=== PATIENT | male | born 1955 | race African-American/Black ===

== ENCOUNTER 2017-10-25 02:23 | Observation (INO) | payer MEDICARE ==
[2017-10-25] MEDS ORDERED: Albuterol Sulfate 2.5 mg/3 ml Neb ONE (02:29)
[2017-10-25 03:03] LABS: pH, Arterial 7.32 (7.35-7.45)
[2017-10-25 03:04] LABS: Actual Bicarbonate (HCO3a) 27.1 mEq/L (22-28); Base Excess (BEa) 0.4 mEq/L (-2.0 to +3.0); CO2 Tension 53.7 mmHg (35.0-45.0); O2 Tension (PaO2) 27.1 mmHg (> 80.0)
[2017-10-25 03:05] LABS: Hemoglobin (Hb) 11.1 g/dL (14.0-18.0)
[2017-10-25 03:06] LABS: ALV-art Gradient 259.775 (0-20); Analyzer IN Cardio ER; Calcium, Ionized 1.1 mmol/L (1.12-1.30); Puncture Site RRA
[2017-10-25 03:30] LABS: #Basophils 0.1 thou/uL (0.0-0.2); #Eosinphils 0.5 thou/uL (0.0-0.7); #Lymphocytes 2.2 thou/uL (1.20-3.40); #Monocytes 0.9 thou/uL (0.11-0.59); #Neutrophils 9.3 thou/uL (1.40-6.50); %Basophils 0.7 % (0.0-1.0); %Eosinophils 3.5 % (0.0-10.0); %Monocytes 6.8 % (0.0-10.0); Hemoglobin 10.9 g/dL (14.0-18.0); Mean Corpuscular HGB CONC 33.8 g/dL (32.0-36.0); Mean Corpuscular Hemoglobin 30.1 pg (27.0-31.0); Mean Platelet Volume 8.4 fL (7.4-10.4); Platelet Count 272 thou/uL (130-400); RBC Distribution Width 16.3 % (11.5-14.5); Red Blood Cell (RBC) Count 3.62 mill/uL (4.70-6.10)
[2017-10-25 03:48] LABS: ALT (SGPT) 14 U/L (8-55); AST (SGOT) 14 U/L (5-34); Alkaline Phosphatase 107 U/L (40-150); Anion Gap 24 mmol/L (10-20); BUN (Urea Nitrogen) 68 mg/dL (8.4-25.7); Bilirubin, Total 0.4 mg/dL (0.2-1.2); Calc. Creatinine Clearance 0 mL/min (70-130); Calcium 9.1 mg/dL (7.8-10.44); Carbon Dioxide 22 mmol/L (23-31); Chloride 94 mmol/L (98-107); Estimated GFR-MDRD 7; Globulin 4.5 g/dL (2.4-3.5); Glucose 105 mg/dL (80-115); Potassium 5.5 mmol/L (3.5-5.1); Protein, Total 8.5 g/dL (5.8-8.1); Sodium 134 mmol/L (136-145)
[2017-10-25 03:53] LABS: CKMB 2.5 ng/mL (0-6.6); Troponin I 0.021 ng/mL (< 0.028)
[2017-10-25 08:02] VITALS: BMI 29.7
--- NOTE | 2017-10-25 08:11 | RAD ---
AP VIEW CHEST: Date: 10/25/17 HISTORY: Dyspnea. FINDINGS: Comparison made to previous exam from 10/19/17. AP view of chest demonstrates sternotomy wires seen. There is a dual lead intracardiac pacing device. IMPRESSION: Area of right lateral lung scarring, unchanged since the previous exam from approximately 1 week zack ier. Cardiomegaly is seen. No evidence of effusions seen. There may be some component of right lung b ase pneumonia or scar which is not significantly changed. POS: [facility]
[2017-10-25] MEDS ORDERED: Prevnar 13-Val Conj/PF 0.5 ML SYRINGE IM ONE (09:00)
[2017-10-25 13:24] VITALS: BP 101/69; TEMP 97.4
[2017-10-25] MEDS ORDERED: HYDROcodone/Acetaminophen 10/325 mg Tablet PO SCH (14:15)
[2017-10-25] MEDS ORDERED: Heparin 10,000 UNITS/ 10 ML VIAL ONE (15:57)
--- NOTE | 2017-10-26 01:10 | CON ---
DATE OF CONSULTATION: 10/25/2017 CONSULTING PHYSICIAN: Beatriz Simental M.D. REQUESTING PHYSICIAN: ER physician. REASON FOR CONSULTATION: Respiratory distress in patient with end-stage renal disease. IMPRESSION: 1. End-stage renal disease. 2. Hypovolemia. 3. Respiratory distress, likely multifactorial. PLAN: 1. The patient to be dialyzed with ultrafiltration as tolerated by hemodynamics. 2. From the renal standpoint, status post dialysis, patient should able to be discharged home. HISTORY OF PRESENT ILLNESS: History is that of 62-year-old gentleman who presents to the hospital on the weekend for to be admitted and did undergo hemodialysis. The patient presented with shortness of breath and renal consultation has been placed to assist in the management of this case. PAST MEDICAL HISTORY: Significant for end-stage renal disease, hemodialysis dependent, hypertension, atrial fibrillation. MEDICATIONS: Reviewed as documented on [employer]. ALLERGIES: DILAUDID, LISINOPRIL. REVIEW OF SYSTEMS: As documented in the body of the history. All other systems were reviewed and f ound not significantly to the presenting illness. PHYSICAL EXAMINATION: GENERAL: The patient was found to be in some subjective respiratory distress with the examination. VITAL SIGNS: Afebrile with temperature 97.5, pulse 85, respiratory rate 24, O2 sat 100% on 3 liters. HEENT: Unremarkable. CARDIOVASCULAR SYSTEM: First and second heart sounds were heard. RESPIRATORY SYSTEM: Clear to auscultation. DIGESTIVE SYSTEM: Revealed a benign abdomen. EXTREMITIES: No peripheral edema. SKIN: No new gross rash. LYMPHATICS: No peripheral lymphadenopathy. SUMMARY: A 62-year-old gentleman with end-stage renal disease, dialysis dependent, who presented her e with shortness of breath. Thank you for this consultation. We will follow with you.
== END 2017-10-25 14:23 | disposition home or self-care (01) ==
LOC: ERS 02:23 → ERHOLD 04:38 → 2SW 06:53
PROVIDERS: ADMIT Hospitalist; ATTEND Hospitalist
DX: R06.02 Shortness of breath (principal); I12.0 Hypertensive chronic kidney disease with stage 5 chronic kidney disease or end stage renal disease; N18.6 End stage renal disease; R06.03 Acute respiratory distress; E86.1 Hypovolemia; I48.91 Unspecified atrial fibrillation; Z79.82 Long term (current) use of aspirin; Z79.899 Other long term (current) drug therapy; Z88.8 Allergy status to other drugs, medicaments and biological substances; Z99.2 Dependence on renal dialysis
CPT/HCPCS: 71045; 80053; 82553; 82805; 83880; 84484; 85025; 90670; 93005; 94640; 94660; 99285; G0009; 36415; 90471; 90935; G0257; J1644; J7611

== ENCOUNTER 2017-12-13 03:47 | Emergency (ER) | payer MEDICARE ==
[2017-12-13] MEDS ORDERED: predniSONE 20 MG TAB ONE (04:37)
[2017-12-13] MEDS ORDERED: Albuterol Sulfate 2.5 mg/3 ml Neb ONE ×2 (04:37→05:15)
== END 2017-12-13 06:17 | disposition home or self-care (01) ==
LOC: ERS 03:47
DX: J44.1 Chronic obstructive pulmonary disease with (acute) exacerbation (principal); I48.91 Unspecified atrial fibrillation; E78.5 Hyperlipidemia, unspecified; E11.9 Type 2 diabetes mellitus without complications; I10 Essential (primary) hypertension; F17.210 Nicotine dependence, cigarettes, uncomplicated; Z79.899 Other long term (current) drug therapy; Z79.891 Long term (current) use of opiate analgesic
CPT/HCPCS: 93005; J7506; J7611; J7620